=== PATIENT | male | born 2000 | race Caucasian/White ===

== ENCOUNTER 2025-05-31 21:56 | Emergency (ER) | payer MEDICAID ==
[~2025-05-31] VITALS: Ht 182.9 cm; Wt 80.0 kg
[2025-05-31 22:11] VITALS: O2SAT 98
[2025-05-31] MEDS ORDERED: IBUPROFEN 600MG TABLET PO ONE (22:15)
[2025-05-31] MEDS ORDERED: IBUP-1455 MT (23:11)
[2025-05-31] MEDS: IBUPROFEN 600MG TABLET PO NR (23:55)
[2025-06-01 00:10] VITALS: BP 124/73; PULSE 90; RESP 20; TEMP 37.2; O2SAT 98
[2025-06-01] MEDS ORDERED: BO1 TP (13:45)
== END 2025-06-01 00:21 | disposition home or self-care (01) ==
LOC: ER 21:56
DX: M79.671 Pain in right foot (principal)
CPT/HCPCS: 73630; 99283

== ENCOUNTER 2025-06-01 00:21 | Emergency (ER) | payer MEDICAID ==
[~2025-06-01] VITALS: Ht 180.3 cm; Wt 82.0 kg
[~2025-06-01 00:21] MED LIST: IBUP-1455 MT
[2025-06-01 00:30] VITALS: O2SAT 97
[2025-06-01 02:25] LABS: CLARITY URINE TURBID (CLEAR); COLOR URINE DARK YELLOW (YELLOW); GLUCOSE URINE NEGATIVE (NEGATIVE); KETONES URINE 1+ (NEGATIVE); LEUKOCYTE ESTERASE URINE TRACE (NEGATIVE); NITRITE URINE NEGATIVE (NEGATIVE); OCCULT BLOOD URINE 3+ (NEGATIVE); PH URINE 6.0 (4.5-8.0); PROTEIN URINE 1+ (NEGATIVE); SPECIFIC GRAVITY URINE 1.025 (1.005-1.030); UROBILINOGEN URINE 4.0 E.U./dL (0.2-1.0)
[2025-06-01 02:32] LABS: *AMPHETAMINES SCREEN URINE PRESUMPTIVE POSITIVE (NEGATIVE); *BARBITURATES SCREEN URINE NEGATIVE (NEGATIVE); *BENZODIAZEPINES SCREEN URINE NEGATIVE (NEGATIVE); *COCAINE SCREEN URINE NEGATIVE (NEGATIVE); CANNABINOID URINE SCREEN PRESUMPTIVE POSITIVE (NEGATIVE); ECSTASY MDMA SCREEN URINE CONF.TEST INDICATED (NEGATIVE); METHADONE URINE SCREEN NEGATIVE (NEGATIVE); OPIATES URINE SCREEN NEGATIVE (NEGATIVE); PHENCYCLIDINE URINE SCREEN NEGATIVE (NEGATIVE)
[2025-06-01 02:57] LABS: WBC URINE 0-2 /hpf (0-2)
[2025-06-01 02:58] LABS: AMORPHOUS SEDIMENT URINE 2+ /lpf; BACTERIA URINE 1+; RBC URINE TNTC /hpf (0-2); SQUAMOUS EPITHELIAL CELL URINE 1+ /lpf (RARE/1+)
[2025-06-01 03:19] LABS: HEMATOCRIT. 34.5 % (42.0-52.0); HEMOGLOBIN. 12.0 g/dL (14.0-18.0); MEAN PLATELET VOLUME 8.6 fl (7.4-10.4); PLATELET 213 x1000/uL (130-400); RED BLOOD CELL COUNT 4.00 mill/uL (4.7-6.1); RED CELL DISTRIBUTION WIDTH 13.1 % (11.6-14.6)
[2025-06-01 03:31] LABS: CREATININE 0.6 mg/dL (0.6-1.3); UREA NITROGEN BLOOD 6 mg/dL (9-23)
[2025-06-01 03:57] LABS: ETHANOL BLOOD < 10 mg/dL (<10)
[2025-06-01 04:20] LABS: BAND% 1.0 % (1.0-6.0); EOSINOPHILS % MANUAL 1.0 % (0.0-5.0); LYMPHOCYTES % MANUAL 27.0 % (20.0-50.0); MONOCYTES % MANUAL 10.0 % (2.0-8.0); NEUTROPHILS % MANUAL 61.0 % (45.0-75.0); PLATELET ESTIMATE NORMAL
[2025-06-01] MEDS: POTASSIUM CHLORIDE 20MEQ/PACKET PO NR (05:13)
[2025-06-01] MEDS: SODIUM CHLORIDE 0.9% 1,000 ML IV ONE (05:13)
[2025-06-01 05:26] LABS: PROTEIN TOTAL 5.9 g/dL (6.0-8.3)
[2025-06-01 05:27] LABS: ASPARTATE AMINOTRANSFERASE 92 IU/L (<34); BILIRUBIN DIRECT 0.2 mg/dL (<=3.0); BILIRUBIN TOTAL 0.4 mg/dL (0.1-1.0)
[2025-06-01 10:14] VITALS: BP 120/87; PULSE 72; RESP 15; TEMP 37.1; O2SAT 100
[2025-06-01] MEDS ORDERED: BO1 TP (13:45)
== END 2025-06-01 10:33 | disposition home or self-care (01) ==
LOC: ER 00:21
DX: R45.851 Suicidal ideations (principal); E87.6 Hypokalemia; F15.10 Other stimulant abuse, uncomplicated; Z59.00 Homelessness unspecified; Z79.899 Other long term (current) drug therapy; Z20.822 Contact with and (suspected) exposure to COVID-19
CPT/HCPCS: 80076; 80305; 80048; 81003; 80307; 80329; 80320; 84132; 85025; 36415; 96360; 99285; 87426; J7030; G0480

== ENCOUNTER 2025-06-01 10:44 | Emergency (ER) | payer MEDICAID ==
[~2025-06-01] VITALS: Ht 180.3 cm; Wt 61.0 kg
[2025-06-01 10:47] VITALS: PULSE 91; RESP 16; O2SAT 98
[2025-06-01 10:50] VITALS: BP 123/60; TEMP 36.5; O2SAT 99
[2025-06-01] MEDS ORDERED: BO1 TP (13:45)
== END 2025-06-01 13:00 | disposition left against medical advice (07) ==
LOC: ER 10:44
DX: F15.90 Other stimulant use, unspecified, uncomplicated (principal); Z53.21 Procedure and treatment not carried out due to patient leaving prior to being seen by health care provider
CPT/HCPCS: 99281

== ENCOUNTER 2025-06-01 12:36 | Emergency (ER) | payer MEDICAID ==
[~2025-06-01] VITALS: Ht 180.3 cm; Wt 91.0 kg
[2025-06-01 12:47] VITALS: O2SAT 99
[2025-06-01] MEDS ORDERED: BO1 TP (13:45)
[2025-06-01] MEDS: BACITRACIN ZINC OINT UDPKT TOP ONE (13:58)
[2025-06-01 13:59] VITALS: BP 119/71; PULSE 88; RESP 17; TEMP 36.7; O2SAT 99
== END 2025-06-01 14:00 | disposition home or self-care (01) ==
LOC: ER 12:45
DX: S90.822A Blister (nonthermal), left foot, initial encounter (principal); S90.821A Blister (nonthermal), right foot, initial encounter; F15.10 Other stimulant abuse, uncomplicated; Z59.00 Homelessness unspecified; X58.XXXA Exposure to other specified factors, initial encounter; Y93.89 Activity, other specified; Y92.89 Other specified places as the place of occurrence of the external cause; Y99.8 Other external cause status
CPT/HCPCS: 99283